=== PATIENT | male | born 1980 | race Caucasian/White ===

== ENCOUNTER 2023-11-17 18:28 | Emergency (ER) | payer OTHER ==
[2023-11-17] MEDS ORDERED: Lidocaine 1% 5 ML VIAL INJECT ONE (18:39)
[2023-11-17] MEDS ORDERED: Diphtheria,Pertussis(Acell),Tetanus Vaccine 0.5 ML Syringe IM ONE (18:39)
[2023-11-17] MEDS: Lidocaine 1% with EPINEPHrine 1:100,000 10 ML MDV INJECT ONE (19:37)
== END 2023-11-17 19:39 | disposition home or self-care (01) ==
LOC: MW.ED 18:28
DX: S61.411A Laceration without foreign body of right hand, initial encounter (principal); Z79.899 Other long term (current) drug therapy; Z75.8 Other problems related to medical facilities and other health care; Z88.6 Allergy status to analgesic agent; W26.0XXA Contact with knife, initial encounter
CPT/HCPCS: 12001; 99282; 99283; J3490

== ENCOUNTER 2024-05-24 20:17 | Emergency (ER) | payer OTHER | END 2024-05-24 21:52 | disposition left against medical advice (07) | LOC: MW.ED 20:17 | DX: Z53.21 Procedure and treatment not carried out due to patient leaving prior to being seen by health care provider (principal) ==

== ENCOUNTER 2024-05-26 21:27 | Emergency (ER) | payer OTHER ==
[2024-05-26] MEDS: Acetaminophen/oxyCODONE 325-5 MG Tab PO ONE (21:51)
[2024-05-26] MEDS ORDERED: Sodium Chloride 0.9% 10 ML Syringe FLUSH PRN (22:42)
[2024-05-26] MEDS ORDERED: Sodium Chloride 0.9% 20 ML SDV IV PRN (22:42)
[2024-05-26] MEDS ORDERED: Sodium Chloride 0.9% 2.5 ML Syringe FLUSH PRN (22:42)
[2024-05-26] MEDS: Ketamine 500 mg/10 ML MDV IV ONE (22:54)
[2024-05-26] MEDS: Morphine 4 MG/ML Syringe IVPUSH ONE (22:54)
[2024-05-26] MEDS: Ketorolac 30 MG/ML SDV IVPUSH ONE (23:41)
[2024-05-26] MEDS: Cyclobenzaprine 10 MG Tab PO ONE (23:42)
[2024-05-27] MEDS: Acetaminophen 500 MG Tab PO ONE (00:58)
[2024-05-27] MEDS: Morphine 4 MG/ML Syringe IVPUSH ONE (00:59)
== END 2024-05-27 02:00 | disposition home or self-care (01) ==
LOC: MW.ED 21:27
DX: S20.211A Contusion of right front wall of thorax, initial encounter (principal); E66.9 Obesity, unspecified; F17.210 Nicotine dependence, cigarettes, uncomplicated; Z79.899 Other long term (current) drug therapy; Z88.5 Allergy status to narcotic agent; Z68.36 Body mass index [BMI] 36.0-36.9, adult; W00.0XXA Fall on same level due to ice and snow, initial encounter
CPT/HCPCS: 71046; 71046-26; 93005; 93010; 96374; 96375; 96376; 99283; 99285-25; A9270-GY; J2270; J3490

== ENCOUNTER 2024-05-27 12:05 | Emergency (ER) | payer OTHER ==
[2024-05-27] MEDS ORDERED: Sodium Chloride 0.9% 2.5 ML Syringe FLUSH PRN (12:42)
[2024-05-27] MEDS ORDERED: Sodium Chloride 0.9% 10 ML Syringe FLUSH PRN (12:42)
[2024-05-27 13:02] LABS: BASOPHILS ABSOLUTE AUTO 0.05 K/uL (0.00-0.20); BASOPHILS PERCENT AUTO 0.5 % (0.0-1.0); EOSINOPHILS ABSOLUTE AUTO 0.09 K/uL (0.00-0.45); HEMATOCRIT 45.1 % (42.0-52.0); HEMOGLOBIN 15.4 g/dL (14.0-18.0); IMMATURE GRAN ABSOLUTE AUTO 0.02 K/uL (0.00-0.05); IMMATURE GRAN PERCENT AUTO 0.2 % (0.0-0.4); LYMPHOCYTES ABSOLUTE AUTO 1.99 K/uL (1.00-4.80); LYMPHOCYTES PERCENT AUTO 21.6 % (24.0-44.0); MEAN CORPUSCULAR HEMOGLOBIN 29.6 pg (28.0-32.0); MEAN CORPUSCULAR HGB CONC 34.1 g/dL (32.0-36.0); MEAN CORPUSCULAR VOLUME 86.7 fL (83.0-99.0); MEAN PLATELET VOLUME 8.5 fL (9.4-12.4); MONOCYTES ABSOLUTE AUTO 0.52 K/uL (0.00-0.80); MONOCYTES PERCENT AUTO 5.6 % (0.0-8.0); NEUTROPHILS ABSOLUTE AUTO 6.54 K/uL (1.80-7.70); NEUTROPHILS PERCENT AUTO 71.1 % (41.0-71.0); PLATELET COUNT,PLT 312 K/uL (150-400); WHITE BLOOD CELL COUNT,WBC 9.21 K/uL (3.9-11.3)
[2024-05-27] MEDS: Iopamidol 755 Mg/ML 100 ML Bottle IVPUSH ONE (13:07)
[2024-05-27 13:25] LABS: A/G RATIO 1.1 (0.9-1.6); ALBUMIN 4.2 g/dL (3.4-5.0); BILIRUBIN TOTAL 0.3 mg/dL (0.2-1.0); CALCIUM 8.8 mg/dL (8.5-10.1); CARBON DIOXIDE,CO2 25.4 mmol/L (21.0-32.0); CREATININE 1.2 mg/dL (0.8-1.3); EST CRCL DRUG DOSING (CG) 82.8 mL/min; POTASSIUM,K 3.6 mmol/L (3.5-5.1)
[2024-05-27] MEDS: Lidocaine 4% 1 each Patch TOP ONE (13:35)
[2024-05-27] MEDS: Acetaminophen/HYDROcodone 325-10 MG Tab PO ONE (14:51)
== END 2024-05-27 14:54 | disposition home or self-care (01) ==
LOC: MW.ED 12:05
DX: R07.81 Pleurodynia (principal); I10 Essential (primary) hypertension; E66.9 Obesity, unspecified; Z88.5 Allergy status to narcotic agent; Z79.899 Other long term (current) drug therapy; Z75.8 Other problems related to medical facilities and other health care
CPT/HCPCS: 36415; 71275; 80053; 84484; 85025; 99285; A9270; Q9967

== ENCOUNTER 2024-10-04 23:12 | Emergency (ER) | payer OTHER ==
[2024-10-04] MEDS: Diphtheria,Pertussis(Acell),Tetanus Vaccine 0.5 ML Syringe IM ONE (23:37)
== END 2024-10-05 00:30 | disposition home or self-care (01) ==
LOC: MW.ED 23:12
DX: S61.412A Laceration without foreign body of left hand, initial encounter (principal); Z88.5 Allergy status to narcotic agent; Z23 Encounter for immunization; Z79.899 Other long term (current) drug therapy; W26.8XXA Contact with other sharp object(s), not elsewhere classified, initial encounter; Y93.89 Activity, other specified
CPT/HCPCS: 12001; 90471; 99282-25; 99283